=== PATIENT | male | born 1975 | race Caucasian/White ===

== ENCOUNTER 2017-08-14 15:47 | Emergency (ER) | payer OTHER ==
[~2017-08-14] VITALS: Ht 188 cm; Wt 74.5 kg
[2017-08-14 15:54] VITALS: BP 126/72
[2017-08-14] MEDS ORDERED: LIDOCAINE 1%, 20ML ONE (16:27)
[2017-08-14] MEDS ORDERED: LIDOCAINE 1%, 20ML INFIL ONE (16:30)
[2017-08-14] MEDS ORDERED: BACITRACIN ZINC OINT 500U/GM, 0.9 GM ONE (17:35)
== END 2017-08-14 17:56 | disposition home or self-care (01) ==
LOC: ED 17:15
DX: S61.411A Laceration without foreign body of right hand, initial encounter (principal); X58.XXXA Exposure to other specified factors, initial encounter; Y93.89 Activity, other specified; Y92.89 Other specified places as the place of occurrence of the external cause; Y99.8 Other external cause status
CPT/HCPCS: 12001; 99284